=== PATIENT | female | born 1990 | race Caucasian/White ===

== ENCOUNTER 2017-04-20 06:01 | Emergency (ER) | payer OTHER ==
[~2017-04-20] VITALS: Ht 157.5 cm; Wt 106.9 kg
[~2017-04-20 06:01] MED LIST: BENTYL10 MG PO; DOXYCYCLINE HY100 MG PO; KLOR-CON M1515 MEQ PO; MIRENA1 EACH IY; Motrin PO; NOHOMEMEDS; PHENTERMINE HCL15 MG PO; Percocet 5/325,Endoc PO; VICODIN 5-3001 EACH PO; ZOFRAN ODT4 MG PO; ZOFRAN4 MG PO
[2017-04-20 06:59] LABS: HEMATOCRIT 42.2 % (36.0-46.0); MCH 30.1 PG (29.0-34.0); MCHC 34.4 G/DL (30.0-36.0); MCV 87.7 FL (83-99); MEAN PLAT.VOLUME 12.6 uM^3 (9.5-12.4); PLATELET COUNT 202 K/uL (156-360); RBC DIS.WIDTH-CV 11.9 % (11.8-14.6); RBC DIS.WIDTH-SD 38.3 % (39-53); RED BLOOD COUNT 4.81 M/uL (3.80-5.20); WHITE BLOOD COUNT 10.7 K/uL (4.1-10.2)
[2017-04-20 07:27] LABS: ALKALINE PHOSPHATASE 53 IU/L (3-129); ANION GAP 7 MEQ/L (2-14); CHLORIDE 105 MEQ/L (99-109); GFR ESTIMATE (CALCULATED) > 59 mL/min/; GLUCOSE 95 mg/dL (70-99); POTASSIUM 3.9 MEQ/L (3.7-5.4); SAMPLE HEMOLYSIS CHECK 1; SAMPLE ICTERIC CHECK 0; SAMPLE LIPEMIA CHECK 0; SODIUM 139 MEQ/L (136-147); TOTAL BILIRUBIN 0.4 MG/DL (0.0-1.0); UREA NITROGEN (BUN) 14 mg/dL (9-23)
[2017-04-20 07:28] LABS: QUANTITATIVE HCG < 4.0 MIU/ML
[2017-04-20 08:06] LABS: LIPASE 12 U/L (1.0-51.0)
[2017-04-20 08:41] LABS: ADD MIUA? YES; BILIRUBIN NEGATIVE; BLOOD SMALL; COLOR YELLOW ((YELLOW)); GLUCOSE (STRIP) NEGATIVE; KETONES NEGATIVE; LEUKOCYTES SMALL; NITRITE NEGATIVE; PROTEIN (STRIP) NEGATIVE; SPECIFIC GRAVITY 1.041 (1.000-1.030); UROBILINOGEN 0.2 MG/DL (0.2-1.0)
[2017-04-20 08:50] LABS: BACTERIA NONE SEEN /HPF; EPITHELIAL CELLS 1+ /HPF; MUCUS TRACE /LPF
[2017-04-20] MEDS ORDERED: PERCOCET 5/31 TABLET PO (09:06)
[2017-04-20] MEDS ORDERED: ZOFRAN ODT4 MG PO (09:06)
[2017-04-20] MEDS ORDERED: COLACE100 MG PO (09:06)
[2017-04-20] MEDS ORDERED: AUGMENTIN875 MG PO (09:06)
[2017-04-20 09:56] VITALS: BP 114/69
== END 2017-04-20 09:57 | disposition home or self-care (01) ==
LOC: EME 06:01
PROVIDERS: Nurse Practitioner Family
DX: L02.216 Cutaneous abscess of umbilicus (principal); Z98.890 Other specified postprocedural states; J45.909 Unspecified asthma, uncomplicated; F17.200 Nicotine dependence, unspecified, uncomplicated; Z87.442 Personal history of urinary calculi
CPT/HCPCS: 74177; 80053; 81003; 83690; 84702; 85027; 99281; 99284; J1885; J3010; J7030

== ENCOUNTER 2018-01-27 09:59 | Inpatient (IN) | payer OTHER ==
[~2018-01-27] VITALS: Ht 157.5 cm; Wt 113.0 kg
[~2018-01-27 09:59] MED LIST changes: +AUGMENTIN875 MG PO; +COLACE100 MG PO; +PERCOCET 5/31 TABLET PO
[2018-01-27 11:11] LABS: HEMATOCRIT 41.5 % (36.0-46.0); HEMOGLOBIN 14.7 G/DL (11.9-15.5); MCH 30.7 PG (29.0-34.0); MCHC 35.4 G/DL (30.0-36.0); MCV 86.6 FL (83-99); PLATELET COUNT 204 K/uL (156-360); RBC DIS.WIDTH-CV 12.6 % (11.8-14.6); RBC DIS.WIDTH-SD 39.9 % (39-53); RED BLOOD COUNT 4.79 M/uL (3.80-5.20); WHITE BLOOD COUNT 12.8 K/uL (4.1-10.2)
[2018-01-27 11:25] LABS: ALBUMIN 4.4 g/dL (3.2-4.8)
[2018-01-27 11:26] LABS: CHLORIDE 109 mEq/L (99-109); POTASSIUM 4.3 mEq/L (3.7-5.4); SODIUM 141 mEq/L (136-147)
[2018-01-27 11:28] LABS: GLUCOSE 95 mg/dL (70-99); TOTAL PROTEIN 7.4 g/dL (6.4-8.3)
[2018-01-27 11:30] LABS: TOTAL BILIRUBIN 0.5 mg/dL (0.0-1.0)
[2018-01-27 11:31] LABS: ALKALINE PHOSPHATASE 63 IU/L (3-129)
[2018-01-27 11:32] LABS: CREATININE 0.7 mg/dL (0.6-1.3); GFR ESTIMATE (CALCULATED) > 59 mL/min/
[2018-01-27 11:33] LABS: AST (GOT) 15 IU/L (2-34); UREA NITROGEN (BUN) 11 mg/dL (9-23)
[2018-01-27 11:35] LABS: ALT (GPT) 35 IU/L (3-49)
[2018-01-27 11:42] LABS: APPEARANCE CLEAR ((CLEAR)); BILIRUBIN NEGATIVE; BLOOD SMALL; COLOR STRAW ((YELLOW)); GLUCOSE (STRIP) NEGATIVE; KETONES NEGATIVE; LEUKOCYTES SMALL; NITRITE NEGATIVE; PROTEIN (STRIP) NEGATIVE; SPECIFIC GRAVITY 1.006 (1.000-1.030); UROBILINOGEN 0.2 MG/DL (0.2-1.0)
[2018-01-27 11:42] LABS: QUANTITATIVE HCG < 4.0 MIU/ML
[2018-01-27 11:49] LABS: BACTERIA RARE /HPF; EPITHELIAL CELLS 1+ /HPF; HYALINE CASTS 0-5 /LPF; MUCUS TRACE /LPF; RED BLOOD CELLS 0-5 /HPF (0-5); UCUL ADDED? NO; WHITE BLOOD CELLS 0-5 /HPF (0-5)
[2018-01-27] MEDS ORDERED: ATORVASTATIN CA20 MG PO (15:06)
[2018-01-27 16:41] VITALS: BP 124/75
[2018-01-27 19:55] VITALS: BP 120/60
[2018-01-28] VITALS (7 sets, daily range): BP systolic 101–116; BP diastolic 50–64
[2018-01-28 07:22] LABS: HEMATOCRIT 38.8 % (36.0-46.0); HEMOGLOBIN 13.4 G/DL (11.9-15.5); MCH 29.9 PG (29.0-34.0); MCHC 34.5 G/DL (30.0-36.0); MCV 86.6 FL (83-99); PLATELET COUNT 184 K/uL (156-360); RBC DIS.WIDTH-CV 12.5 % (11.8-14.6); RBC DIS.WIDTH-SD 39.9 % (39-53); RED BLOOD COUNT 4.48 M/uL (3.80-5.20); WHITE BLOOD COUNT 9.9 K/uL (4.1-10.2)
[2018-01-28 07:44] LABS: CHLORIDE 106 MEQ/L (99-109); CREATININE 0.7 MG/DL (0.6-1.3); GFR ESTIMATE (CALCULATED) > 59 mL/min/; GLUCOSE 98 mg/dL (70-99); POTASSIUM 4.6 MEQ/L (3.7-5.4); SODIUM 137 MEQ/L (136-147); UREA NITROGEN (BUN) 12 mg/dL (9-23)
[2018-01-29 03:39] VITALS: BP 102/64
[2018-01-29 08:01] VITALS: BP 129/63
[2018-01-29 09:20] VITALS: BP 128/60
[2018-01-29] MEDS ORDERED: HYDROCODON-ACE1 EAC7 PO (10:35)
[2018-01-29] MEDS ORDERED: AUGMENTIN875 MG PO (10:35)
== END 2018-01-29 11:33 | disposition home or self-care (01) | DRG 581 ==
LOC: EME 09:59 → EDOF 15:25 → 2EAST 15:25 → CANRESERV 15:40 → ENRESERV 15:40 → 2EAST 16:31
PROVIDERS: Emergency Medicine; Physician Assistant
PROC: 0WBF0ZZ Excision of Abdominal Wall, Open Approach (ICD-10-PCS; principal; 2018-01-28)
DX: L02.216 Cutaneous abscess of umbilicus (principal); E78.5 Hyperlipidemia, unspecified; F17.210 Nicotine dependence, cigarettes, uncomplicated; N20.0 Calculus of kidney; L03.311 Cellulitis of abdominal wall
CPT/HCPCS: 74177; 80048; 80053; 81003; 83605; 84702; 85027; 87040; 88305; 99281; 99285; J0131; J0330; J0690; J1100; J1170; J1885; J2250; J2405; J2543; J2710; J2765; J3010; J7030; J7050; J7120; J7643; S0020